=== PATIENT | male | born 2000 | race Caucasian/White ===

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

== ENCOUNTER → 2021-01-25 12:37 | Outpatient (CLI) | payer BC ==
[2019-07-05 08:01] VITALS: BMI 28.7
[~2021-01-25 12:37] MED LIST changes: +PERCOCET 10-321 EAC1 PO; +TORADOL10 MG PO; +VISTARIL50 MG PO; +ZOFRAN ODT4 MG/UDTAB PO
== END | disposition home or self-care (01) ==
LOC: D.MRI 01-20 13:00
PROVIDERS: ATTEND Clinical Nurse Specialist Family Health
DX: M25.561 Pain in right knee (principal)